=== PATIENT | male | born 1995 | race Asian ===

== ENCOUNTER 2020-04-28 15:26 | Emergency (ER) | payer OTHER ==
[~2020-04-28] VITALS: Ht 172.7 cm; Wt 91.1 kg
[2020-04-28 15:27] VITALS: BP 136/76
[2020-04-28] MEDS ORDERED: ADDE20CA3 PO (15:33)
[2020-04-28] MEDS ORDERED: ADDE10CA3 PO (15:33)
[2020-04-28] MEDS ORDERED: PROC1AER16 PR (17:09)
== END 2020-04-28 17:22 | disposition home or self-care (01) ==
LOC: M ED 15:26
DX: K92.2 Gastrointestinal hemorrhage, unspecified (principal); K92.1 Melena; K64.8 Other hemorrhoids; F90.9 Attention-deficit hyperactivity disorder, unspecified type; Z79.899 Other long term (current) drug therapy

== ENCOUNTER 2021-09-22 10:10 | Emergency (ER) | payer OTHER ==
[~2021-09-22] VITALS: Ht 172.7 cm; Wt 96.8 kg
[2021-09-22 10:10] VITALS: BP 147/83
[~2021-09-22 10:10] MED LIST: ADDE10CA3 PO; ADDE20CA3 PO; PROC1AER16 PR
[2021-09-22] MEDS ORDERED: PRAZ1CAP PO (10:20)
[2021-09-22] MEDS ORDERED: KETOROLAC 30 MG/ML 1ML VIAL IV ONE ×2 (12:05→15:05)
[2021-09-22] MEDS ORDERED: NS 1,000 ML IV ONE (12:05)
[2021-09-22] MEDS ORDERED: ONDANSETRON 4MG/2ML VIAL IV ONE (12:05)
[2021-09-22 12:36] LABS: BASO % 0.3 % (0.0-1.0); EOS % 0.3 % (0.0-3.0); HEMOGLOBIN 17.9 g/dl (13.5-17.5); LYMPH % 11.1 % (24.0-44.0); MEAN CORPUSCULAR HEMOGLOBIN 29.9 pg (27.0-33.0); MEAN CORPUSCULAR HGB CONC 34.4 g/dl (32.0-36.5); MONO # 0.5 10^3/uL (0.0-0.8); MONO % 5.2 % (2.0-8.0); NEUTROPHILS # 7.7 10^3/uL (1.5-8.5); NEUTROPHILS % 82.8 % (36.0-66.0); PLATELET COUNT, AUTOMATED 333 10^3/uL (150-450); RED BLOOD COUNT 5.98 10^6/uL (4.30-6.10); WHITE BLOOD COUNT 9.3 10^3/uL (4.0-10.0)
[2021-09-22] MEDS: GASTROGRAFIN SOLUTION 30ML PO SCH ×2 (12:47→13:15)
[2021-09-22 13:11] LABS: ALBUMIN 4.9 GM/DL (3.2-5.2); ALT/SGPT 105 U/L (12-78); BILIRUBIN,DIRECT 0.1 MG/DL (0.0-0.2); BILIRUBIN,TOTAL 0.7 MG/DL (0.2-1.0); BLOOD UREA NITROGEN 12 MG/DL (7-18); CALCIUM LEVEL 10.7 MG/DL (8.5-10.1); CARBON DIOXIDE LEVEL 30 MEQ/L (21-32); CHLORIDE LEVEL 98 MEQ/L (98-107); CREATININE FOR GFR 1.07 MG/DL (0.70-1.30); GLOMERULAR FILTRATION RATE > 60.0 (>60); GLUCOSE, FASTING 111 MG/DL (70-100); LIPASE 62 U/L (73-393); POTASSIUM SERUM 4.6 MEQ/L (3.5-5.1); SODIUM LEVEL 135 MEQ/L (136-145); TOTAL PROTEIN 8.4 GM/DL (6.4-8.2)
[2021-09-22 13:28] LABS: RSV AMPLIFICATION NEGATIVE (NEGATIVE)
[2021-09-22] MEDS ORDERED: ISOVUE-370 76% 100ML VIAL As Ordered ONE (14:09)
--- NOTE | 2021-09-22 14:41 | REP ---
INDICATION: upper abd pain, hx of surg as an . ?obstruction. COMPARISON: None TECHNIQUE: Axial contrast-enhanced images from the lung bases to the pubic symphysis using oral and 100 cc Isovue 370 intravenous contrast material. Coronal and sagittal reformations obtained. This CT examination was performed using the following dose reduction techniques: Automated exposure control, adjustment of mA and/or kv according to the patient's size, and the use of iterative reconstruction technique. FINDINGS: There is a moderate fluid-filled dilatation to the small bowel without obvious point of transition. The large bowel is relatively normal/collapsed in appearance. Few scattered sigmoid diverticula noted without acute diverticulitis. There is no free air or free fluid. Differential diagnosis includes a mild enteritis and less likely partial/early small bowel obstruction. Liver demonstrates fatty infiltration without focal hepatic lesion. Spleen, pancreas, bilateral adrenal glands and kidneys are normal. Cholelithiasis noted without evidence for acute cholecystitis. Pelvis demonstrates normal bladder and age-appropriate prostate/seminal vesicles. No ascites. No free air. No intraperitoneal or retroperitoneal adenopathy. Abdominal aorta and vasculature appear normal. Musculoskeletal structures are intact and without acute osseous abnormality. IMPRESSION: 1. Moderate fluid-filled distention to the small bowel without discrete transition or evidence for obstruction. Differential diagnosis includes mild enteritis and less likely partial/early small bowel obstruction. Close clinical observation and serial radiographic evaluation may be warranted. 2. Hepatosteatosis. 3. Cholelithiasis. <Electronically signed by Tato Cash > 09/22/21 [id number]
[2021-09-22] MEDS ORDERED: FAMOTIDINE 20 MG TAB PO ONE (15:05)
[2021-09-22] MEDS ORDERED: KETO10TAB PO ×2 (15:50→15:58)
[2021-09-22] MEDS ORDERED: ONDA4TAB6 PO ×2 (15:50→15:58)
--- NOTE | 2021-09-23 15:52 | ED PDOC ---
Post-Departure Follow-Up radiology report faxed to [facility] Ora Baltazar MD Sep 23, 2021 15:52
== END 2021-09-22 16:16 | disposition home or self-care (01) ==
LOC: M ED 10:10
DX: K80.20 Calculus of gallbladder without cholecystitis without obstruction (principal); R11.2 Nausea with vomiting, unspecified; R10.10 Upper abdominal pain, unspecified
CPT/HCPCS: 74177; 80048; 80076; 83690; 85025; 87631; 96361; 96374; 96375; 96376; 99283; J1885; J2405; Q9963; Q9967

== ENCOUNTER 2022-09-06 11:40 | Day surgery (SDC) | payer OTHER ==
[~2022-09-06] VITALS: Ht 185.4 cm; Wt 96.1 kg
[~2022-09-06 11:40] MED LIST changes: +DICY1CAP8 PO; +KETO10TAB PO; +NS 1,000 ML IV ONE; +OMEP40CA4 PO; +ONDA4TAB6 PO; +PRAZ1CAP PO
[2022-09-06] MEDS ORDERED: propofoL 200 MG/20 ML VIAL As Ordered ONE (13:33)
[2022-09-06 14:32] VITALS: BP 143/76
== END 2022-09-06 14:47 | disposition home or self-care (01) ==
LOC: M OPP 11:40
PROVIDERS: ATTEND Internal Medicine Gastroenterology
DX: K57.30 Diverticulosis of large intestine without perforation or abscess without bleeding (principal); K64.8 Other hemorrhoids; K52.9 Noninfective gastroenteritis and colitis, unspecified; Z98.0 Intestinal bypass and anastomosis status; K44.9 Diaphragmatic hernia without obstruction or gangrene; K29.60 Other gastritis without bleeding; G43.909 Migraine, unspecified, not intractable, without status migrainosus; F43.10 Post-traumatic stress disorder, unspecified; F32.9 Major depressive disorder, single episode, unspecified; F41.9 Anxiety disorder, unspecified; G47.30 Sleep apnea, unspecified; Z79.899 Other long term (current) drug therapy